=== PATIENT | male | born 1955 | race Caucasian/White ===

== ENCOUNTER 2018-10-13 14:50 | Emergency (ER) | payer BC ==
--- OUTSIDE RECORDS SUMMARY | 2018-10-13 14:55 | XMS REPORT ---
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 Active Onset: 01/02/2011 Essential hypertension Bartolo Comer M.D. Active Onset: 01/02/2011 Hyperlipidemia Bartolo Comer M.D. Active Onset: 05/13/2012 Tobacco user Bartolo Comer M.D. Active Onset: 06/05/2016 Mixed hyperlipidemia Thomas Kauffman M.D. Active Onset: 12/17/2016 Benign prostatic hypertrophy without Thomas Kauffman M.D. Active outflow obstruction Family History Date Family Member(s) Problem(s) Comments Father Multiple Myeloma Father Benign Prostatic Hypertrophy Mother Cerebrovascular Accident (CVA) fatal - age 65 First Brother Diabetes Mellitus, II First Brother Hypertension Social History Type Date Description Comments Cigarette Use Current Cigarette Smoker started age 31 - one pack per day - to current ETOH Use Currently consumes alcohol 2-3 drinks daily - hard liquor Smoking Patient is a former smoker Has been done since mid-June Exercise Type/Frequency Exercises sporadically Current Allergies, Adverse Reactions, Alerts Date Description Reaction Status Severity Comments 12/19/2010 NKDA active Medications Medication Date Status Form Strength Qnty SIG Indications Ordering Provider Metformin HCL Active Tablets 1000mg 90tabs 1 by mouth E11.9 Jazmine ER (Osm) 014 ER 24HR every day Amy Cedeño Atorvastatin Active Tablets 20mg 90tabs take 1 E78.2 Jazmine Calcium 013 tablet by Davidson mouth once M.DLurdes daily Aspir-81 Active Tablets 81mg 90tabs 1 po qd Bartolo ALurdes 012 DR Souleymane M.D. Lisinopril Active Tablets 40mg 90tabs take 1 I10 Thomas A. 012 tablet by Jamari, mouth once M.D. daily Naproxen Active Tablets 500mg 1 by mouth Unknown 000 twice a day with food Doxycycline Hx Tablets 100mg 2tabs 2 tabs by Thomas A. Hyclate 017 - DR mouth once Darveronica, M.DLurdes 017 Doxycycline Hx Tablets 100mg 2tabs take 2 Thomas A. Hyclate 017 - pills x 1 Darlow, dose M.D. 017 Azithromycin Hx Tablets 250mg 6tabs 2 tabs by J20.9 Jairo Winchester, 016 - mouth day M.D. #1 then 1 016 tab by mouth day#2-5 Accu-Chek Araceli Hx Can 1Month for E11.9 Mcfarland A. Test Strips 013 - testing 1 Souleymane time a day M.D. 018 Accu-Chek Araceli Hx Test 1Box Test Q Am Mcfarland A. Smartview Test 013 - Strips Comer, Strips M.D. 013 Accu-Chek Araceli Hx Kit 1units for Mcfarland A. Smartview 013 - testing 3 Souleymane times per M.D. 013 week Accu-Chek Araceli Hx 1Box test 1x Mcfarland A. Test Strips 013 - day Souleymane M.D. 013 Doxycycline Hx Tablets 100mg 2tabs 2 tabs po Bartolo Bowen Hyclate 012 - DR jordyn Comer, Amy 013 Chantix Starter Hx 1units starter 305.1 Bartolo A. Pack 012 - pack as Souleymane, directed MJose 012 then two refills on regular dose Lisinopril Hx Tablets 30mg 90tabs 1 po qd 401.9 Bartolo Bowen 012 - Souleymane Amy 012 Metformin HCL Hx Tablets 500mg 90tabs Take 1 Jairo Winchester, ER 012 - ER 24HR Tablet By Amy Mouth 014 Every Morning Levaquin Hx Tablets 500mg 20tabs 1 po qd 599.70 Bartolo Bowen 011 - Souleymane, Amy 012 Amlodipine Hx Tablets 10mg 90tabs 1 po qd 401.9 Bartolo Walekr. Besylate 011 - Souleymane Amy 011 Lisinopril Hx Tablets 20mg 30tabs 1 po qd 401.9 Bartolo ALurdes 011 - Souleymane Amy 011 Lisinopril Hx Tablets 20mg 90tabs take 1 401.9 Bartolo A. 011 - tablet Souleymane, daily MJose 012 Simvastatin Hx Tablets 20mg 30tabs take 1 272.4 Bartolo ALurdes 011 - tablet by Souleymane, mouth once M.Padmini 013 daily Caduet 0 Hx Tablets 10-20mg 30tabs 1 po qd Unknown 000 - 011 Lisinopril 0 Hx Tablets 10mg 30tabs 1 po qd Unknown 000 - 011 Metformin HCL Hx Tablets 500mg 180tab 1 po bid Bartolo Bowen 000 - s Souleymane Amy 012 Test Strips - 0 Hx 3Month test once Bartolo Henderson 000 - s in am Souleymane Amy 013 Immunizations CPT Code Status Date Vaccine Lot # [id number] Given 09/11/2017 Influenza Vac, Quadrivalent, Slit Virus, Im [id number] Given 06/16/2017 Zostivax [id number] Given 06/16/2017 Zostivax [id number] Given 12/17/2016 Influenza Vac, Quadrivalent, Slit Virus, Im [id number] Given 11/21/2015 Influenza Vac, Quadrivalent, Slit Virus, Im [id number] Given 08/09/2014 DO Not Use Split Influenza Virus Vaccine [id number] Given 09/14/2012 DO Not Use Split Influenza Virus Vaccine [id number] Given 12/19/2010 Tdap Tetanus, W Pertussis [id number] Vital Signs Date Vital Result Comment 10/07/2018 BP Systolic 120 mmHg BP Diastolic 78 mmHg Heart Rate 72 /min Body Temperature 98.8 F Respiratory Rate 16 /min Height 67.75 inches 5'7.75" Weight 200.00 lb BMI (Body Mass Index) 30.6 kg/m2 06/16/2018 BP Systolic 120 mmHg BP Diastolic 80 mmHg Heart Rate 68 /min Body Temperature 98.6 F Respiratory Rate 16 /min Height 67.75 inches 5'7.75" Weight 195.00 lb BMI (Body Mass Index) 29.9 kg/m2 12/17/2017 BP Systolic 122 mmHg BP Diastolic 78 mmHg Heart Rate 64 /min Body Temperature 99.1 F Respiratory Rate 16 /min Height 67.75 inches 5'7.75" Weight 195.12 lb BMI (Body Mass Index) 29.9 kg/m2 09/11/2017 BP Systolic 118 mmHg BP Diastolic 80 mmHg Heart Rate 82 /min Body Temperature 98.1 F Height 67.75 inches 5'7.75" Weight 189.00 lb BMI (Body Mass Index) 28.9 kg/m2 06/16/2017 BP Systolic 116 mmHg BP Diastolic 78 mmHg Heart Rate 68 /min Body Temperature 98.8 F Respiratory Rate 16 /min Height 67.75 inches 5'7.75" Weight 186.00 lb BMI (Body Mass Index) 28.5 kg/m2 12/17/2016 BP Systolic 114 mmHg BP Diastolic 78 mmHg Heart Rate 78 /min Body Temperature 98.4 F Respiratory Rate 16 /min Height 67.75 inches 5'7.75" Weight 197.00 lb BMI (Body Mass Index) 30.2 kg/m2 06/05/2016 BP Systolic 120 mmHg BP Diastolic 76 mmHg Heart Rate 80 /min Body Temperature 99.0 F Respiratory Rate 12 /min Height 67.75 inches 5'7.75" Weight 187.00 lb BMI (Body Mass Index) 28.6 kg/m2 11/21/2015 BP Systolic 134 mmHg BP Diastolic 84 mmHg Heart Rate 72 /min Respiratory Rate 16 /min Height 67.75 inches 5'7.75" Weight 187.00 lb BMI (Body Mass Index) 28.6 kg/m2 06/02/2015 BP Systolic 144 mmHg BP Diastolic 82 mmHg Heart Rate 68 /min Body Temperature 98.1 F Respiratory Rate 16 /min Height 67.75 inches 5'7.75" Weight 177.12 lb BMI (Body Mass Index) 27.1 kg/m2 12/09/2014 BP Systolic 144 mmHg BP Diastolic 84 mmHg Heart Rate 76 /min Body Temperature 98.6 F Respiratory Rate 16 /min Height 68 inches 5'8" measured Weight 185.00 lb BMI (Body Mass Index) 28.1 kg/m2 08/09/2014 BP Systolic 122 mmHg BP Diastolic 88 mmHg Heart Rate 64 /min Body Temperature 98.6 F Respiratory Rate 17 /min Height 68 inches 5'8" measured Weight 184.50 lb BMI (Body Mass Index) 28.1 kg/m2 04/05/2014 BP Systolic 132 mmHg BP Diastolic 90 mmHg Heart Rate 84 /min Body Temperature 99.3 F Height 68 inches 5'8" measured Weight 184.12 lb BMI (Body Mass Index) 28.0 kg/m2 12/06/2013 BP Systolic 118 mmHg BP Diastolic 80 mmHg Heart Rate 64 /min Body Temperature 98.7 F Respiratory Rate 16 /min Height 68 inches 5'8" measured Weight 180.00 lb BMI (Body Mass Index) 27.4 kg/m2 09/01/2013 BP Systolic 128 mmHg BP Diastolic 82 mmHg Heart Rate 68 /min Body Temperature 97.2 F Respiratory Rate 16 /min Height 69 inches 5'9" Weight 181.00 lb BMI (Body Mass Index) 26.7 kg/m2 02/17/2013 BP Systolic 130 mmHg BP Diastolic 84 mmHg Heart Rate 72 /min Body Temperature 99.3 F Height 69 inches 5'9" Weight 181.00 lb BMI (Body Mass Index) 26.7 kg/m2 09/14/2012 BP Systolic 130 mmHg BP Diastolic 90 mmHg Heart Rate 68 /min Body Temperature 98.4 F Respiratory Rate 16 /min Height 69 inches 5'9" Weight 180.00 lb BMI (Body Mass Index) 26.6 kg/m2 05/13/2012 BP Systolic 132 mmHg BP Diastolic 88 mmHg Heart Rate 78 /min Body Temperature 98.4 F Height 69 inches 5'9" Weight 177.00 lb BMI (Body Mass Index) 26.1 kg/m2 01/13/2012 BP Systolic 136 mmHg BP Diastolic 88 mmHg Heart Rate 72 /min Body Temperature 99.7 F Height 69 inches 5'9" Weight 177.00 lb BMI (Body Mass Index) 26.1 kg/m2 09/09/2011 BP Systolic 130 mmHg BP Diastolic 90 mmHg Heart Rate 84 /min Body Temperature 98.9 F Height 69 inches 5'9" Weight 169.00 lb BMI (Body Mass Index) 25.0 kg/m2 08/30/2011 BP Systolic 140 mmHg BP Diastolic 90 mmHg Heart Rate 76 /min Body Temperature 97.4 F Respiratory Rate 12 /min Height 69 inches 5'9" Weight 173.00 lb BMI (Body Mass Index) 25.5 kg/m2 08/27/2011 BP Systolic 142 mmHg BP Diastolic 94 mmHg Heart Rate 64 /min Body Temperature 99.0 F Respiratory Rate 12 /min Height 69 inches 5'9" Weight 172.00 lb BMI (Body Mass Index) 25.4 kg/m2 05/06/2011 BP Systolic 140 mmHg BP Diastolic 90 mmHg Heart Rate 76 /min Body Temperature 99.1 F Respiratory Rate 12 /min Height 69 inches 5'9" Weight 166.00 lb BMI (Body Mass Index) 24.5 kg/m2 01/02/2011 BP Systolic 120 mmHg BP Diastolic 80 mmHg Heart Rate 68 /min Body Temperature 98.8 F Respiratory Rate 12 /min Height 69 inches 5'9" Weight 166.00 lb BMI (Body Mass Index) 24.5 kg/m2 12/19/2010 BP Systolic 112 mmHg BP Diastolic 78 mmHg Heart Rate 78 /min Body Temperature 98.6 F Height 69 inches 5'9" Weight 167.00 lb BMI (Body Mass Index) 24.7 kg/m2 Results Test Date Test Result H/L Range Note Lipid Profile 06/16/2018 Cholesterol 140 mg/dL 120-200 Triglycerides 79 mg/dL 30-200 HDL Cholesterol 34 mg/dL 30-70 LDL (Calculated) 90 CALC 0-129 VLDL Cholesterol 16 mg/dL 0-50 HDL Risk Factor 4.1 CALC 0.0-4.4 Comprehensive Metabolic Prof 06/16/2018 Sodium 134 mEq/L 134-149 Potassium 4.7 mEq/L 3.6-5.5 Chloride 103 mEq/L 94-112 Carbon Dioxide 24 mEq/L 21-32 Glucose 135 mg/dL High 70-105 1 BUN 25 mg/dL 6-26 Creatinine 0.9 mg/dL 0.6-1.4 BUN/Creat Ratio 27.8 CALC 8.0-36.0 Calcium 9.3 mg/dL 8.6-10.2 Total Protein 6.7 g/dL 6.4-8.3 Albumin 4.4 g/dL 3.8-5.5 Globulin 2.3 g/dL 2.0-4.8 A/G Ratio 1.9 CALC 0.6-2.3 Alk. Phosphatase 72 U/L 22-95 Alt (SGPT) 26 U/L 7-35 Ast (Sgot) 24 U/L 5-34 Total Bilirubin 0.4 mg/dL 0.2-1.3 GFR Non- >60 ml/min/1.73m^ >=60 GFR >60 ml/min/1.73m^ >=60 CBC Electronic a 06/16/2018 WBC 10.8 x10^3/UL High 4.0-10.0 RBC 4.44 x10^6/UL 3.93-6.00 HGB 13.8 g/dL 12.0-17.0 HCT 41 % 35-50 MCV 91.7 fL 80.0-95.0 MCH 31.1 pg 25.6-32.2 MCHC 33.9 g/dL 32.2-36.0 RDW-CV 13.2 % 11.6-14.4 PLT 249 x10^3/UL 163-400 MPV 9.5 fL 9.4-12.4 David# 7.41 x10^3/UL High 1.56-6.13 Lymph# 2.17 x10^3/UL 1.18-3.74 Bibb# 0.86 x10^3/UL High 0.24-0.82 Eos # 0.3 x10^3/UL 0.0-0.5 Baso # 0.06 x10^3/UL 0.01-0.08 David% 68.3 % 34.0-70.0 Lymph % 20.0 % 20.0-52.0 Bibb% 7.9 % 5.0-12.0 Eos% 3.0 % 0.7-7.0 Baso% 0.6 % 0.1-1.2 Laboratory test finding 06/16/2018 Hemoglobin A1c (Fma) 5.6% % 4.1-5.7 Ua - Non Micro (Fma) 06/16/2018 Appearance clear Color yellow Glucose, Urine (Fma/CMC/CTX) neg Bilirubin neg Ketones neg SP Grav >=1.030 Blood neg PH 6.0 Protein neg Urobil 0.2 Nitrite neg Leukocytes (a/[facility]) neg Laboratory test finding 06/16/2018 Microalb, Random 9.7 mg/L 0.5-37 (a/CMC/CTX) Laboratory test finding 03/21/2018 PSA Screening 0.612 ng/mL 0-4.0 Laboratory test finding 12/17/2017 Hemoglobin A1c (Fma) 5.6 % 4.1-5.7 Complete Blood Count 12/17/2017 WBC 9.6 x10^3/UL 3.6-9.6 RBC 4.35 x10^6/UL 3.90-5.70 HGB 13.9 g/dL 12.1-17.2 HCT 40 % 36-50 MCV 93.0 fL 82.2-97.4 MCH 31.9 pg 27.6-33.3 MCHC 34.4 g/dL 33.0-35.5 RDW 14.1 % High 11.6-13.7 PLT 258 x10^3/UL 150-400 MPV 7.7 fL 7.4-10.4 Gran # 7.0 x10^3/UL 1.5-7.2 Lymph# 2.2 x10^3/UL 0.7-4.9 Bibb# 0.4 x10^3/UL 0.1-0.9 Gran % 72.0 % 42.2-75.2 Lymph % 23.6 % 20.5-51.1 Bibb% 4.4 % 1.7-9.3 Laboratory test finding 09/13/2017 PSA Screening 0.495 ng/mL 0-4.0 2 Lipid Profile 06/16/2017 Cholesterol 158 mg/dL 120-200 Triglycerides 73 mg/dL 30-200 HDL Cholesterol 40 mg/dL 30-70 LDL (Calculated) 103 CALC 0-129 VLDL Cholesterol 15 mg/dL 0-50 HDL Risk Factor 4.0 CALC 0.0-4.4 Comprehensive Metabolic Prof 06/16/2017 Sodium 136 mEq/L 134-149 Potassium 5.5 mEq/L 3.6-5.5 Chloride 99 mEq/L 94-112 Carbon Dioxide 23 mEq/L 21-32 Glucose 130 mg/dL High 70-105 3 BUN 25 mg/dL 6-26 Creatinine 0.9 mg/dL 0.6-1.4 BUN/Creat Ratio 27.8 CALC 8.0-36.0 Calcium 9.6 mg/dL 8.6-10.2 Total Protein 7.0 g/dL 6.4-8.3 Albumin 4.6 g/dL 3.8-5.5 Globulin 2.4 g/dL 2.0-4.8 A/G Ratio 1.9 CALC 0.6-2.3 Alk. Phosphatase 76 U/L 22-95 Alt (SGPT) 24 U/L 7-35 Ast (Sgot) 24 U/L 5-34 Total Bilirubin 0.5 mg/dL 0.2-1.3 GFR Non- >60 ml/min/1.73m^ >=60 GFR >60 ml/min/1.73m^ >=60 Laboratory test finding 06/16/2017 TSH 1.58 mIU/L 0.50-6.00 Complete Blood Count 06/16/2017 WBC 11.5 x10^3/UL High 3.6-9.6 4 RBC 4.47 x10^6/UL 3.90-5.70 HGB 14.7 g/dL 12.1-17.2 HCT 42 % 36-50 MCV 94.0 fL 82.2-97.4 MCH 32.8 pg 27.6-33.3 MCHC 35.1 g/dL 33.0-35.5 RDW 14.2 % High 11.6-13.7 PLT 340 x10^3/UL 150-400 MPV 7.5 fL 7.4-10.4 Gran # 8.5 x10^3/UL High 1.5-7.2 Lymph# 2.4 x10^3/UL 0.7-4.9 Bibb# 0.6 x10^3/UL 0.1-0.9 Gran % 72.8 % 42.2-75.2 Lymph % 21.8 % 20.5-51.1 Bibb% 5.4 % 1.7-9.3 Laboratory test finding 06/16/2017 Hemoglobin A1c (Fma) 5.6 % 4.1-5.7 Microalb, Random (Fma/CMC/CTX) 5.6 mg/L 0.5-37 Laboratory test finding 02/08/2017 PSA Screening 0.589 ng/mL 0-4.0 5 Laboratory test finding 12/17/2016 Hepatitis C Antibody Nonreactive Nonreactive 6 Lipid Profile 12/17/2016 Cholesterol 171 mg/dL 120-200 Triglycerides 90 mg/dL 30-200 HDL Cholesterol 41 mg/dL 30-70 LDL (Calculated) 112 CALC 0-129 VLDL Cholesterol 18 mg/dL 0-50 HDL Risk Factor 4.2 CALC 0.0-4.4 Comprehensive Metabolic Prof 12/17/2016 Sodium 138 mEq/L 134-149 Potassium 5.5 mEq/L 3.6-5.5 Chloride 108 mEq/L 94-112 Carbon Dioxide 22 mEq/L 21-32 Glucose 132 mg/dL High 70-105 7 BUN 19 mg/dL 6-26 Creatinine 0.9 mg/dL 0.6-1.4 BUN/Creat Ratio 21.1 CALC 8.0-36.0 Calcium 10.1 mg/dL 8.6-10.2 Total Protein 7.6 g/dL 6.4-8.3 Albumin 4.7 g/dL 3.8-5.5 Globulin 2.9 g/dL 2.0-4.8 A/G Ratio 1.6 CALC 0.6-2.3 Alk. Phosphatase 89 U/L 22-95 Alt (SGPT) 22 U/L 7-35 Ast (Sgot) 18 U/L 5-34 Total Bilirubin 0.3 mg/dL 0.2-1.3 GFR Non- >60 ml/min/1.73m^ >=60 GFR >60 ml/min/1.73m^ >=60 Laboratory test finding 12/17/2016 TSH 2.15 mIU/L 0.50-6.00 PSA 0.6 ng/mL 0.0-4.0 Laboratory test finding 12/17/2016 Hemoglobin A1c (Fma) 5.8 % % High 4.1- 5.7 Complete Blood Count 12/17/2016 WBC 9.3 x10^3/UL 3.6-9.6 RBC 4.73 x10^6/UL 3.90-5.70 HGB 14.6 g/dL 12.1-17.2 HCT 43 % 36-50 MCV 91.0 fL 82.2-97.4 MCH 30.9 pg 27.6-33.3 MCHC 33.8 g/dL 33.0-35.5 RDW 14.8 % High 11.6-13.7 PLT 261 x10^3/UL 150-400 MPV 7.1 fL Low 7.4-10.4 Gran # 6.2 x10^3/UL 1.5-7.2 Lymph# 2.6 x10^3/UL 0.7-4.9 Bibb# 0.5 x10^3/UL 0.1-0.9 Gran % 65.4 % 42.2-75.2 Lymph % 28.7 % 20.5-51.1 Bibb% 5.9 % 1.7-9.3 Complete Blood Count 07/10/2016 WBC 9.8 x10^3/UL High 3.6-9.6 8 RBC 4.39 x10^6/UL 3.90-5.70 HGB 14.1 g/dL 12.1-17.2 HCT 41 % 36-50 MCV 94.0 fL 82.2-97.4 MCH 32.2 pg 27.6-33.3 MCHC 34.4 g/dL 33.0-35.5 RDW 13.5 % 11.6-13.7 PLT 281 x10^3/UL 150-400 MPV 7.7 fL 7.4-10.4 Gran # 7.0 x10^3/UL 1.5-7.2 Lymph# 2.4 x10^3/UL 0.7-4.9 Bibb# 0.4 x10^3/UL 0.1-0.9 Gran % 70.3 % 42.2-75.2 Lymph % 24.9 % 20.5-51.1 Bibb% 4.8 % 1.7-9.3 Complete Blood Count 06/05/2016 WBC 10.8 x10^3/UL High 3.6-9.6 9 RBC 4.54 x10^6/UL 3.90-5.70 HGB 14.6 g/dL 12.1-17.2 HCT 43 % 36-50 MCV 94.0 fL 82.2-97.4 MCH 32.0 pg 27.6-33.3 MCHC 33.9 g/dL 33.0-35.5 RDW 13.7 % 11.6-13.7 PLT 286 x10^3/UL 150-400 MPV 6.9 fL Low 7.4-10.4 Gran # 7.6 x10^3/UL High 1.5-7.2 Lymph# 2.9 x10^3/UL 0.7-4.9 Bibb# 0.6 x10^3/UL 0.1-0.9 Gran % 67.8 % 42.2-75.2 Lymph % 26.6 % 20.5-51.1 Bibb% 5.6 % 1.7-9.3 Laboratory test finding 06/05/2016 Hemoglobin A1c (Fma) 5.6 % 4.1-5.7 Microalb, Random (Fma/CMC/CTX) 5.3 mg/L 0.5-37 Lipid Profile 06/05/2016 Cholesterol 168 mg/dL 120-200 Triglycerides 170 mg/dL 30-200 HDL Cholesterol 40 mg/dL 30-70 LDL (Calculated) 94 CALC 0-129 VLDL Cholesterol 34 mg/dL 0-50 HDL Risk Factor 4.2 CALC 0.0-4.4 Comprehensive Metabolic Prof 06/05/2016 Sodium 146 mEq/L 134-149 Potassium 4.9 mEq/L 3.6-5.5 Chloride 111 mEq/L 94-112 Carbon Dioxide 24 mEq/L 21-32 Glucose 103 mg/dL 70-105 BUN 25 mg/dL 6-26 Creatinine 1.2 mg/dL 0.6-1.4 BUN/Creat Ratio 20.8 CALC 8.0-36.0 Calcium 10.2 mg/dL 8.6-10.2 Total Protein 7.3 g/dL 6.4-8.3 Albumin 4.6 g/dL 3.8-5.5 Globulin 2.7 g/dL 2.0-4.8 A/G Ratio 1.7 CALC 0.6-2.3 Alk. Phosphatase 68 U/L 22-95 Alt (SGPT) 26 U/L 7-35 Ast (Sgot) 25 U/L 5-34 Total Bilirubin 0.5 mg/dL 0.2-1.3 GFR Non- >60 ml/min/1.73m^ >=60 GFR >60 ml/min/1.73m^ >=60 Laboratory test finding 06/05/2016 TSH 1.85 mIU/L 0.50-6.00 Laboratory test finding 12/18/2015 Surgical Pathology SEE RESULT BELOW 10 Comprehensive Metabolic 11/28/2015 Sodium 134 mEq/L 134-149 Prof Potassium 4.9 mEq/L 3.6-5.5 Chloride 102 mEq/L 94-112 Carbon Dioxide 26 mEq/L 21-32 Glucose 127 mg/dL High 70-105 11 BUN 15 mg/dL 6-26 Creatinine 0.8 mg/dL 0.6-1.4 BUN/Creat Ratio 18.8 CALC 8.0-36.0 Calcium 9.6 mg/dL 8.6-10.2 Total Protein 7.3 g/dL 6.4-8.3 Albumin 4.5 g/dL 3.8-5.5 Globulin 2.8 g/dL 2.0-4.8 A/G Ratio 1.6 CALC 0.6-2.3 Alk. Phosphatase 66 U/L 22-95 Alt (SGPT) 19 U/L 7-35 Ast (Sgot) 17 U/L 5-34 Total Bilirubin 0.2 mg/dL 0.2-1.3 GFR Non- >60 ml/min/1.73m^ >=60 GFR >60 ml/min/1.73m^ >=60 Lipid Profile 11/28/2015 Cholesterol 172 mg/dL 120-200 Triglycerides 92 mg/dL 30-200 HDL Cholesterol 43 mg/dL 30-70 LDL (Calculated) 111 CALC 0-129 VLDL Cholesterol 18 mg/dL 0-50 HDL Risk Factor 4.0 CALC 0.0-4.4 Laboratory test finding 11/28/2015 Hemoglobin A1c 5.4 % 4.1-5.7 (Fma/CMC,CX) Comprehensive Metabolic 06/02/2015 Sodium 135 mEq/L 134-149 Prof Potassium 3.9 mEq/L 3.6-5.5 Chloride 103 mEq/L 94-112 Carbon Dioxide 21 mEq/L 21-32 Glucose 98 mg/dL 70-105 BUN 18 mg/dL 6-26 Creatinine 0.8 mg/dL 0.6-1.4 BUN/Creat Ratio 22.5 CALC 8.0-36.0 Calcium 9.1 mg/dL 8.6-10.2 Total Protein 6.9 g/dL 6.4-8.3 Albumin 4.3 g/dL 3.8-5.5 Globulin 2.6 g/dL 2.0-4.8 A/G Ratio 1.7 CALC 0.6-2.3 Alk. Phosphatase 64 U/L 22-95 Alt (SGPT) 19 U/L 7-35 Ast (Sgot) 25 U/L 5-34 Total Bilirubin 0.6 mg/dL 0.2-1.3 Lipid Profile 06/02/2015 Cholesterol 171 mg/dL 120-200 Triglycerides 78 mg/dL 30-200 HDL Cholesterol 42 mg/dL 30-70 LDL (Calculated) 113 CALC 0-129 VLDL Cholesterol 16 mg/dL 0-50 HDL Risk Factor 4.1 CALC 0.0-4.4 Laboratory test 06/02/2015 Hemoglobin A1c 5.2 % % 4.1-5.7 finding (Fma/CMC,CX) Laboratory test 01/07/2015 PSA Diagnostic 0.637 ng/mL 0-4.0 finding Laboratory test 01/07/2015 Hemoglobin A1c 5.9 % Less than 6.0 12, 13 finding Comp Metabolic-ALL 01/07/2015 Sodium 136 mmol/L 133-145 12 Lab Compani Potassium 4.9 mmol/L 3.5-5.0 12 Chloride 104 mmol/L 101-111 12 Co2 Carbon Dioxide 27 mmol/L 22-32 12 Anion Gap 5 mmol/L 2-11 12 Glucose 96 mg/dL 70-100 12 Blood Urea Nitrogen 29 mg/dL High 6-24 12 Creatinine 1.02 mg/dL 0.67-1.17 12 BUN/Creatinine Ratio 28.4 High 8-20 12 Calcium 10.0 mg/dL 8.6-10.3 12 Total Protein 6.9 g/dL 6.4-8.9 12 Albumin 4.6 g/dL 3.2-5.2 12 Globulin 2.3 g/dL 2-4 12 Albumin/Globulin Ratio 2.0 1-3 12 Total Bilirubin 0.60 mg/dL 0.2-1.0 12 Alkaline Phosphatase 57 U/L 34-104 12 Alt 18 U/L 7-52 12 Ast 23 U/L 13-39 12 Egfr Non- 75.0 >60 12 Egfr 96.5 >60 12, 14 Lipid Panel-[facility] 01/07/2015 Triglycerides 42 mg/dL 12, 15 Cholesterol 163 mg/dL 12, 16 HDL Cholesterol 54.7 mg/dL 12, 17 LDL Cholesterol 100 mg/dL 12, 18 Comprehensive Metabolic Prof 08/09/2014 Sodium 138 mEq/L 134-149 Potassium 5.1 mEq/L 3.6-5.5 Chloride 103 mEq/L 94-112 Carbon Dioxide 28 mEq/L 21-32 Glucose 117 mg/dL High 70-105 BUN 16 mg/dL 6-26 Creatinine 0.8 mg/dL 0.6-1.4 BUN/Creat Ratio 20.0 CALC 8.0-36.0 Calcium 9.8 mg/dL 8.6-10.2 Total Protein 7.3 g/dL 6.3-8.1 Albumin 4.4 g/dL 3.8-5.5 Globulin 2.9 g/dL 2.0-4.8 A/G Ratio 1.5 CALC 0.6-2.3 Alk. Phosphatase 71 U/L 22-95 Alt (SGPT) 20 U/L 7-35 Ast (Sgot) 23 U/L 5-34 Total Bilirubin 0.5 mg/dL 0.2-1.3 Lipid Profile 08/09/2014 Cholesterol 168 mg/dL 120-200 Triglycerides 78 mg/dL 30-200 HDL Cholesterol 53 mg/dL 30-70 LDL (Calculated) 99 CALC 0-129 VLDL Cholesterol 16 mg/dL 0-50 HDL Risk Factor 3.2 CALC 0.0-4.4 Laboratory test finding 08/09/2014 Hemoglobin A1c 5.3 % 4.1-5.7 (Fma/CMC,CX) Comprehensive Metabolic 04/05/2014 Sodium 136 mEq/L 134-149 Prof Potassium 4.6 mEq/L 3.6-5.5 Chloride 103 mEq/L 94-112 Carbon Dioxide 25 mEq/L 21-32 Glucose 104 mg/dL 70-105 BUN 13 mg/dL 6-26 Creatinine 0.9 mg/dL 0.6-1.4 BUN/Creat Ratio 14.4 CALC 8.0-36.0 Calcium 9.6 mg/dL 8.6-10.2 Total Protein 6.8 g/dL 6.3-8.1 Albumin 4.7 g/dL 3.8-5.5 Globulin 2.1 g/dL 2.0-4.8 A/G Ratio 2.2 CALC 0.6-2.3 Alk. Phosphatase 79 U/L 22-95 Alt (SGPT) 25 U/L 10-40 Ast (Sgot) 19 U/L 5-34 Total Bilirubin 0.4 mg/dL 0.2-1.3 Laboratory test 04/05/2014 Hemoglobin A1c 5.4 % 4.1-5.7 finding (a/[facility],CX) CCP Antibodies 04/05/2014 CCP Antibodies 47 units High 0-19 19, 20 Iga,Igg IgG/IgA Lyme Igg/M W/RFX 04/05/2014 Lyme IgG/IgM Ab <0.91 index 0.00-0.90 19, 21 West Lyme Disease Ab, Quant, IgM <0.91 index 0.00-0.90 19, 22 Laboratory test finding 04/05/2014 Rheumatoid Arth Factor 8.5 IU/mL 0.0- 13.9 19 C-Reactive Protein 0.4 mg/L 0.0-5.0 19 Antinuclear Abs, Ifa Negative 19, 23 Ua - Non Micro ([facility]) 12/06/2013 Appearance clear Color yellow Glucose - Bilirubin - Ketones - SP Grav 1.025 Blood - PH 5.5 Protein - Urobil 0.2 Nitrite - Leukocytes ([facility]) - Laboratory test finding 09/15/2013 PSA 0.50 ng/mL 0.00-4.00 Laboratory test finding 09/15/2013 Hemoglobin A1c 5.1 % 4.1-5.7 (a/[facility],CX) Lipid Profile 09/15/2013 Cholesterol 156 mg/dL 120-200 HDL 48 mg/dL 30-70 Triglycerides 75 mg/dL 30-200 HDL Risk Factor 3.3 CALC 0.0-4.4 LDL (Calculated) 94 CALC 0-129 VLDL (Calculated) 15 mg/dL 0-50 Comprehensive Metabolic Prof 09/15/2013 Albumin 4.6 g/dL 3.8-5.5 Alk. Phos. 70 U/L 22-95 Alt (SGPT) 17 U/L 10-40 Ast (Sgot) 22 U/L 5-34 BUN 19 mg/dL 6-26 Calcium 9.9 mg/dL 8.6-10.2 Chloride 100 mEq/L 94-112 Creatinine 1.1 mg/dL 0.6-1.4 Carbon Dioxide 27 mEq/L 21-32 Glucose 126 mg/dL High 70-105 Sodium 136 mEq/L 134-149 Total Bilirubin 0.3 mg/dL 0.2-1.3 Total Protein 6.8 g/dL 6.3-8.1 Potassium 5.5 mEq/L 3.6-5.5 Globulin 2.2 g/dL 2.0-4.8 A/G Ratio 2.1 Calc 0.6-2.3 BUN/Creat Ratio 16.8 Calc 8.0-36.0 Laboratory test finding 02/17/2013 Hemoglobin A1c ([facility],CX) 5.3 % 4.1- 5.7 Lipid Profile 09/14/2012 Cholesterol 193 mg/dL 120-200 HDL 51 mg/dL 30-70 Triglycerides 44 mg/dL 30-200 HDL Risk Factor 3.7 CALC 0.0-4.4 LDL (Calculated) 133 CALC High 0-129 VLDL (Calculated) 9 mg/dL 0-50 Comprehensive Metabolic Prof 09/14/2012 Albumin 4.9 g/dL 3.8-5.5 Alk. Phos. 74 U/L 22-95 Alt (SGPT) 17 U/L 10-40 Ast (Sgot) 19 U/L 5-34 BUN 20 mg/dL 6-26 Calcium 9.9 mg/dL 8.6-10.2 Chloride 101 mEq/L 94-112 Creatinine 1.0 mg/dL 0.6-1.4 Carbon Dioxide 22 mEq/L 21-32 Glucose 117 mg/dL High 70-105 Sodium 136 mEq/L 134-149 Total Bilirubin 0.6 mg/dL 0.2-1.3 Total Protein 7.2 g/dL 6.3-8.1 Potassium 4.5 mEq/L 3.6-5.5 Globulin 2.3 g/dL 2.0-4.8 A/G Ratio 2.1 Calc 0.6-2.2 BUN/Creat Ratio 21.0 Calc 8.0-36.0 Laboratory test finding 09/14/2012 PSA 0.70 ng/mL 0.00-4.00 Laboratory test finding 09/14/2012 Hemoglobin A1c 5.3 % 4.1-5.7 (a/[facility],CX) Ua - Non Micro (a) 09/14/2012 Appearance CLEAR Color YELLOW Glucose, Urine (a/[facility]/CTX) NEG Bilirubin NEG Ketones NEG SP Grav 1.025 Blood NEG PH 6.0 Protein NEG Urobil 1.0 Nitrite NEG Leukocytes ([facility]) NEG Laboratory test finding 05/13/2012 Hemoglobin A1c ([facility]) 5.3 % 4.1- 5.7 Laboratory test finding 02/17/2012 Hemoglobin A1c (a/[facility],CX) 5.4 % 4.1- 5.7 Lipid Profile 02/17/2012 Cholesterol 173 mg/dL 120-200 HDL 57 mg/dL 30-70 Triglycerides 62 mg/dL 30-200 HDL Risk Factor 3.0 CALC 0.0-4.0 LDL (Calculated) 103 CALC 0-129 VLDL (Calculated) 12 mg/dL 0-50 Comprehensive Metabolic Prof 02/17/2012 Albumin 4.7 g/dL 3.8-5.5 Alk. Phos. 78 U/L 22-95 Alt (SGPT) 15 U/L 10-40 Ast (Sgot) 18 U/L 5-34 BUN 12 mg/dL 6-26 Calcium 9.7 mg/dL 8.6-10.2 Chloride 104 mEq/L 94-112 Creatinine 0.9 mg/dL 0.6-1.4 Carbon Dioxide 24 mEq/L 21-32 Glucose 135 mg/dL High 70-105 Sodium 137 mEq/L 134-149 Total Bilirubin 0.5 mg/dL 0.2-1.3 Total Protein 6.9 g/dL 6.3-8.1 Potassium 5.2 mEq/L 3.6-5.5 Globulin 2.2 g/dL 2.0-4.8 A/G Ratio 2.1 Calc 0.6-2.2 BUN/Creat Ratio 13.9 Calc 8.0-36.0 Laboratory test finding 09/09/2011 Hemoglobin A1c (a/CMC,CX) 5.5 % 4.1- 5.7 CBC Electronic (a) 09/09/2011 WBC 11.2 High 3.6-9.6 24 RBC 4.61 3.90-5.70 Hemoglobin (Fma/CMC/CTX) 15.9 g/dL 12.1 - 17.2 Hematocrit (Fma/CMC/CTX) 45.3 % 36.1 - 50.3 Platelets 335 10^3/ul 150-400 Lymph% 15.7 Low 20.5-51.1 Mixed% 3.7 Neutrophils % 80.6 Mean Corpuscular Vol 98 High 82.2-97.4 Mean Corpuscular Hemoglobin 34.6 High 27.6-33.3 Mean Corpuscular Hemo Concen 35.2 32.0-36.0 RDW 12.5 11.6-13.7 Mean Platelet Volume 7.4 6.5-11.0 Ua - Non Micro ([facility]) 09/09/2011 Appearance clear Color yellow Glucose neg Bilirubin neg Ketones trace SP Grav >1.030 Blood neg PH 6.0 Protein neg Urobil 0.2 Nitrite neg Leukocytes (Fma/CMC/Centrex) neg Comprehensive Metabolic Prof 09/09/2011 Albumin 5.1 g/dL 3.8-5.5 Alk. Phos. 85 U/L 22-95 Alt (SGPT) 13 U/L 10-40 Ast (Sgot) 16 U/L 5-34 BUN 22 mg/dL 6-26 Calcium 10.5 mg/dL High 8.6-10.2 25 Chloride 106 mEq/L 94-112 Creatinine 1.0 mg/dL 0.6-1.4 Carbon Dioxide 28 mEq/L 21-32 Glucose 104 mg/dL 70-105 Sodium 135 mEq/L 134-149 Total Bilirubin 0.5 mg/dL 0.2-1.3 Total Protein 7.4 g/dL 6.3-8.1 Potassium 5.3 mEq/L 3.6-5.5 Globulin 2.3 g/dL 2.0-4.8 A/G Ratio 2.2 Calc 0.6-2.2 BUN/Creat Ratio 21.9 Calc 8.0-36.0 Laboratory test finding 08/27/2011 Urine Culture Escherichia coli 26 Ua - Micro ([facility]) 08/27/2011 Appearance RED Color CLOUDY Glucose, Urine (Fma/CMC/CTX) NEG Bilirubin NEG Ketones NEG SP Grav 1.025 Blood LARGE PH 5.5 Protein 30 SSA +1 Urobil 2.0 Nitrite POS Leukocytes (Fma/CMC/Centrex) LARGE Hyaline - /Lpf Granular - /Lpf WBC (a,Centrex) >100 RBC >50 Mucus (Fma/CBC/Centrex) SM AMOUNT /Lpf Epith RARE /Lpf Bacteria +3 /Hpf Amorphous (Fma/CMC/Centrex) - /Lpf Crystals, Fluid (Fma/CMC/CTX) - Z#Comments - CBC Electronic ([facility]) 08/27/2011 WBC 17.2 High 3.6-9.6 RBC 4.39 3.90-5.70 Hemoglobin (Fma/CMC/CTX) 14.9 g/dL 12.1 - 17.2 Hematocrit (a/CMC/CTX) 43.2 % 36.1 - 50.3 Platelets 282 10^3/ul 150-400 Lymph% 8.4 Low 20.5-51.1 Mixed% 2.5 Neutrophils % 89.1 Mean Corpuscular Vol 98 High 82.2-97.4 Mean Corpuscular Hemoglobin 33.9 High 27.6-33.3 Mean Corpuscular Hemo Concen 34.5 32.0-36.0 RDW 12.4 11.6-13.7 Mean Platelet Volume 7.6 6.5-11.0 Basic Metabolic Profile 08/27/2011 BUN 17 mg/dL 6-26 Calcium 9.7 mg/dL 8.6-10.2 Chloride 108 mEq/L 94-112 Creatinine 0.8 mg/dL 0.6-1.4 Carbon Dioxide 24 mEq/L 21-32 Glucose 116 mg/dL High 70-105 Sodium 134 mEq/L 134-149 Potassium 4.8 mEq/L 3.6-5.5 BUN/Creat Ratio 20.1 Calc 8.0-36.0 Laboratory test finding 08/27/2011 PSA 2.40 ng/mL 0.00-4.00 Laboratory test finding 05/06/2011 Hemoglobin A1c 5.3 % 4.1-5.7 (a/[facility],CX) Ua - Non Micro (a) 12/19/2010 Appearance CLEAR Color YELLOW Glucose, Urine (a/CMC/CTX) NEG Bilirubin NEG Ketones NEG SP Grav 1.020 Blood NEG PH 7.0 Protein NEG Urobil 4.0 Nitrite NEG Leukocytes ([facility]/Centrex) NEG Laboratory test finding 12/19/2010 Hemoglobin A1c ([facility],CX) 5.3 % 4.1- 5.7 CBC ([facility]) 12/19/2010 WBC 7.6 3.6-9.6 RBC 4.50 3.90-5.70 Hemoglobin (a/CMC/CTX) 15.7 g/dL 12.1 - 17.2 Hematocrit ([facility]/CTX) 44.3 % 36.1 - 50.3 Platelets 253 10^3/ul 150-400 Lymph% 22.5 20.5-51.1 Mixed% 3.8 Neutrophils % 73.7 Mean Corpuscular Vol 98 High 82.2-97.4 Mean Corpuscular Hemoglobin 34.9 High 27.6-33.3 Mean Corpuscular Hemo Concen 35.4 32.0-36.0 RDW 11.8 11.6-13.7 Mean Platelet Volume 7.6 6.5-11.0 Laboratory test finding 12/19/2010 B12 514 pg/mL 230-1050 TSH 1.95 mIU/L 0.50-6.00 Comprehensive Metabolic Prof 12/19/2010 Albumin 4.8 g/dL 3.8-5.5 Alk. Phos. 70 U/L 22-95 Alt (SGPT) 17 U/L 10-40 Ast (Sgot) 25 U/L 5-34 BUN 13 mg/dL 6-26 Calcium 9.4 mg/dL 8.6-10.2 Chloride 103 mEq/L 94-112 Creatinine 0.8 mg/dL 0.6-1.4 Carbon Dioxide 27 mEq/L 21-32 Glucose 106 mg/dL High 70-105 Sodium 134 mEq/L 134-149 Total Bilirubin 1.3 mg/dL 0.2-1.3 Total Protein 7.1 g/dL 6.3-8.1 Potassium 5.2 mEq/L 3.6-5.5 Globulin 2.3 g/dL 2.0-4.8 A/G Ratio 2.1 Calc 0.6-2.2 BUN/Creat Ratio 16.4 Calc 8.0-36.0 Lipid Profile 12/19/2010 Cholesterol 134 mg/dL 120-200 HDL 60 mg/dL 30-70 Triglycerides 56 mg/dL 30-200 HDL Risk Factor 2.2 CALC Low 4.2-7.0 LDL (Calculated) 63 CALC 0-129 VLDL (Calculated) 11 mg/dL 0-50 Laboratory test finding 12/19/2010 PSA 0.90 ng/mL 0.00-4.00 Microalb/Creatinine, Random 12/19/2010 Microalb, Random 9.7 mg/L 0.5-37 Ur (Fma/CMC/CTX) Urine Creatinine (F/C/CTX) 18.2 nmol/L Microalb.,Creatinine (F/C/CTX) 0.5 Surgical Pathology 12/12/2010 Surgical Pathology <SEE NOTE > 27 1 consistent w/ previous results 2 Serum levels of PSA measured using the Keisha Tap[employer] DXI Hybritech immunoassay should not be interpreted as absolute evidence of the presence or absence of disease. The PSA value should be used in conjunction with other pertinent clinical diagnostic procedures. A PSA value in the range of 0.1 to 0.6 ng/ml is indeterminate if being used as an indicator of recurrent or residual disease. The values obtained with different assay methods or kits cannot be used interchangeably. 3 RESULTS VERIFIED BY REPEAT ANALYSIS 4 RESULTS VERIFIED BY REPEAT ANALYSIS 5 Serum levels of PSA measured using the Keisha [employer] DXI Hybritech immunoassay should not be interpreted as absolute evidence of the presence or absence of disease. The PSA value should be used in conjunction with other pertinent clinical diagnostic procedures. A PSA value in the range of 0.1 to 0.6 ng/ml is indeterminate if being used as an indicator of recurrent or residual disease. The values obtained with different assay methods or kits cannot be used interchangeably. 6 1SST [id number] RESULTS VERIFIED BY REPEAT ANALYSIS 8 consistent w/ previous results 9 RESULTS VERIFIED BY REPEAT ANALYSIS 10 SEE RESULT BELOW Name: SAMMY BOYER : [address]: Ismael Ocasio MD Acct: [id number] Unit: [id number] AGE: 60 Location: ENDOC Re12/18/15 SEX: M Status: REG REF SPEC: [id number] JAMARCUS: 12/18/15- SUBM DR: Ismael Ocasio MD REQ: [id number] RECD: 12/18/153 STATUS: CELIA KLEIN DR: Jairo Winchester MD _ ORDERED: LEVEL IV/5 FINAL DIAGNOSIS 1. Colon, proximal transverse, biopsy: -- Tubular adenoma. -- No high grade dysplasia or malignancy. 2. Colon, mid transverse, biopsy: -- Benign colonic mucosa with surface hyperplastic change. 3. Colon, hepatic flexure, biopsy: -- Tubular adenoma. -- No high grade dysplasia or malignancy. 4. Colon, sigmoid, biopsy: -- Tubular adenoma. -- No high grade dysplasia or malignancy. 5. Colon, sigmoid, biopsy: -- Hyperplastic polyp. CLINICAL HISTORY Usual bowel habit - every day; GI - negative; diet - adult onset of diabetes mellitus POST-OPERATIVE DIAGNOSIS Colonoscopy to cecum with ease - gnarled sigmoid. Left diverticulosis, polyps - 2 regions; follow-up to be determined (4 years) CONTINUED ON NEXT PAGE * ML=Testing performed at Main Lab DEPARTMENT OF PATHOLOGY, [address] [place] [address] Mir Parker M.D. Director [facility] # [id number] RUN DATE: 12/20/15 [facility] LAB LIVE PAGE 2 Patient: SAMMY BOYER [id number] (Continued) GROSS DESCRIPTION (Continued) GROSS DESCRIPTION 1. The specimen is received in formalin labeled, Proximal Transverse Polyp , and consists of a 0.7 x 0.6 x 0.1 cm aggregate of heller-white irregular soft tissue fragments, which is entirely submitted in one cassette. 2. The specimen is received in formalin labeled, Biopsy Mid Transverse Polyp, and consists of two heller-white irregular to polypoid soft tissue fragments averaging 0.4 x 0.3 x 0.2 cm, which are entirely submitted in one cassette. 3. The specimen is received in formalin labeled, Hepatic Flexure Polyp, and consists of a 1.1 x 0.7 x 0.2 cm aggregate of heller-white irregular soft tissue fragments, which is entirely submitted in one cassette. 4. The specimen is received in formalin labeled, Sigmoid Polyp, and consists of a 1.0 x 0.6 x 0.3 cm aggregate of heller-white irregular to polypoid soft tissue fragments, which is entirely submitted in one cassette. 5. The specimen is received in formalin labeled, Sigmoid Polyp Unspecified , and consists of a 0.6 x 0.3 x 0.2 cm heller-white irregular to polypoid soft tissue fragment , which is bisected and entirely submitted in one cassette. Signed (signature on file) Makenzie Moran MD 01/30 1105 END OF REPORT * ML=Testing performed at Main Lab DEPARTMENT OF PATHOLOGY, [address] [place] [address] Mir Parker M.D. Director [facility] # [id number] 11 consistent w/ previous results 12 PT IS FASTING 13 Therapeutic target for the treatment of diabetes Mellitus patients is <7% HBA1C, and in selective patients <6.0%.Please refer to [place] [employer] Diabetic care guidelines for further information. 14 Because ethnic data is not always readily available, this report includes an eGFR for both -Americans and non- Americans. The National Kidney Disease Education Program (NKDEP) does not endorse the use of the MDRD equation for patients that are not between the ages of 18 and 70, are , have extremes of body size, muscle mass, or nutritional status, or are non- or non-. According to the National Kidney Foundation, irrespective of diagnosis, the stage of the disease is based on the level of kidney function: Stage Description GFR(mL/min/1.73 m(2)) 1 Kidney damage with normal or decreased GFR 90 2 Kidney damage with mild decrease in GFR 60-89 3 Moderate decrease in GFR 30-59 4 Severe decrease in GFR 15-29 5 Kidney failure <15 (or dialysis) 15 Desirable <150 Borderline high 150-199 High 200-499 Very High >500 16 Desirable <200 Borderline high 200-239 High >239 17 Low <40 Desirable: 40-60 High: >60 18 Desirable <100 Near Optimal 100-129 Borderline high 130-159 High 160-189 Very High >189 19 3 sst 20 Negative <20 Weak positive 20 - 39 Moderate positive 40 - 59 Strong positive >59 21 Negative <0.91 Equivocal 0.91 - 1.09 Positive >1.09 Note: The CDC currently advises that Western blot testing be performed following all equivocal or positive EIA results. Final diagnosis should include appropriate clinical findings and a positive EIA which is also positive by Western blot. 22 Negative <0.91 Equivocal 0.91 - 1.09 Positive >1.09 Note: IgM levels may peak at 3-6 weeks post infection, then gradually decline. FDA currently advises that Western Blot testing be performed following all equivocal or positive EIA results. Final diagnosis should include appropriate clinical findings and a positive EIA which is also positive by Western Blot. 23 Negative <1:80 Borderline 1:80 Positive >1:80 24 results stefanie'd 25 result stefanie'd 26 Escherichia coli >100,000 col/ml URINE CULTURE organism 1 Escherichia coli >100,000 col/ml Meropenem <=0.25 Susceptible Ertapenem <=0.5 Susceptible Amikacin <=2 Susceptible Amoxicillin/CA <=2 Susceptible Ampicillin <=2 Susceptible Aztreonam <=1 Susceptible Cefazolin <=4 Susceptible Ciprofloxacin <=0.25 Susceptible Gentamicin <=1 Susceptible Imipenem <=1 Susceptible Levofloxacin <=0.12 Susceptible Nitrofurantoin <=16 Susceptible Tetracycline <=1 Susceptible Trimethoprim/Sulfa <=20 Susceptible 27 ---- RUN DATE: 12/13/10 [facility] NMI LIVE PAGE 1 RUN TIME: 1443 Specimen Inquiry RUN USER: INTERFACE -- Name: BOYERSAMMY Status: REG REF Re12/12/10 Age/Sex: 55/M Unit#: [id number] Location: [facility] : 57 -- Specimen: [id number] SOUT Spec Date: 12/12/10 [facility] Dr: Ismael carnes MD Spec Type: SURGICAL P Received: 12/12/10-1411 Copies to: Bartolo rubio MD SPECIMEN 1) RECTAL POLYP AT 3 CM. 2) RECTAL POLYP AT 4 CM. 3) BIOPSY ILEOCECAL VALVE POLYP 4) BIOPSY SIGMOID BIOPSY AT 30 CM. 5) RECTOSIGMOID POLYP AT 15 CM. HISTORY POST-OP DIAGNOSIS: Colonoscopy to cecum. Mild diverticulosis. 5 polyps. CLINICAL INFORMATION: Colon polyps. Usual bowel habits. GROSS DESCRIPTION 1) The specimen is received in formalin labelled Sammy MendozaLurdes Boyer, Rectal Polyp at 3 cm., and consists of a heller soft tissue fragment measuring 0.3 x 0.3 x 0.2 cm. Submitted entirely, one cassette. 2) The specimen is received in formalin labelled Sammy Boyer, Rectal Polyp at 4 cm., and consists of a heller soft tissue fragment measuring 0.3 x 0.3 x 0.2 cm. Submitted entirely, one cassette. 3) The specimen is received in formalin labelled Sammy Boyer, Biopsy Ileocecal Valve Polyp, and consists of a heller soft tissue fragment measuring 0.6 x 0.5 x 0.2 cm. in aggregate. Submitted entirely, one cassette. 4) The specimen is received in formalin labelled Sammy Boyer, Biopsy Sigmoid at 30 cm., and consists of a heller soft tissue fragment measuring 0.7 x 0.3 x 0.2 cm. Submitted entirely, one cassette. 5) The specimen is received in formalin labelled Sammy Boyer, Rectosigmoid Polyp at 15 cm., and consists of a hemorrhagic polypoid soft tissue fragment measuring 0.7 x 0.4 x 0.3 cm. Submitted entirely, one cassette. DIAGNOSIS 1) Colon, rectum, 3 cm., biopsy: Hyperplastic polyp. 2) Colon, 4 cm., biopsy: -- DEPARTMENT OF PATHOLOGY, [address] [place] [address] [facility] Permit #[id number] Amy Dawn M.D. Turf Keeper Dir anayeli -- -- RUN DATE: 12/13/10 [facility] NMI LIVE PAGE 2 RUN TIME: 1593 Specimen Inquiry RUN USER: INTERFACE -- Name: SAMMY BOYER Accdanielito#: [id number] Status: REG REF Re12/12/10 Age/Sex: 55/M Unit#: [id number] Location: [facility] : 57 -- -- CONTINUED -- DIAGNOSIS (Continued) Hyperplastic polyp. 3) Colon, ileocecum, biopsy: A. Tubular adenoma. B. No high grade dysplasia or malignancy. 4) Colon, sigmoid, 30 cm., biopsy: Hyperplastic polyp. 5) Colon, rectosigmoid, biopsy: Hyperplastic polyp. Signed Electronically by: MIR PARKER MD 12/13/10 1442 -- -- DEPARTMENT OF PATHOLOGY, [address] [place] [address] [facility] Permit #[id number] Amy Dawn M.D. Turf Keeper Dir anayeli -- Procedures Date CPT Code Description Status 06/16/2028 Diabetic Retinal Eye Exam Completed 06/16/2018 Diabetic Foot Exam Completed 12/18/2015 Colonoscopy Completed 02/17/2013 86347 Finger Or Heel Stick Completed 05/13/2012 13465 Finger Or Heel Stick Completed 05/06/2011 71630 Finger Or Heel Stick Completed 12/12/2010 Colonoscopy Completed Encounters Type Date Location Provider CPT E/M Dx Office Visit 06/16/2018 8:00a [facility] Thomas Kauffman M.D. 65267 E11.9 E78.2 I10 N40.0 Z12.2 Office Visit 12/17/2017 8:00a [facility] Thomas Kauffman M.D. 35621 E11.9 E78.2 I10 N40.0 D72.829 Office Visit 09/11/2017 3:00p [facility] Jeniffer Chapin, [facility] 62881 S80.862A W57.xxxA Z23 Office Visit 06/16/2017 8:00a [facility] Thomas Kauffman M.D. 75109 E11.9 E78.2 I10 N40.0 Z12.2 M70.42 Z23 Office Visit 12/17/2016 8:30a [facility] Thomas Kauffman M.D. 85837 Z00.00 E11.9 E78.2 I10 D72.829 N40.0 Z23 Z11.59 M19.91 Office Visit 06/05/2016 4:40p [facility] Thomas Kauffman M.D. 15101 E11.9 E78.2 I10 M25.552 Office Visit 11/21/2015 3:30p [facility] Jairo Winchester M.D. 47887 E11.9 E78.2 I10 J20.9 Z23 Office Visit 06/02/2015 8:50a [facility] Jairo Winchester M.D. 97605 V70.0 250.00 272.4 401.9 Office Visit 12/09/2014 8:40a [facility] Jairo Winchester M.D. 78110 250.00 272.4 401.9 Office Visit 08/09/2014 9:10a [facility] Jairo Winchester M.D. 48167 250.00 401.9 272.4 V04.81 Office Visit 04/05/2014 9:30a [facility] Bartolo Comer M.D. 15013 250.00 401.9 272.4 305.1 716.89 Office Visit 12/06/2013 10:00a [facility] Bartolo Comer M.D. 44065 V70.0 V76.44 V76.51 250.00 272.4 401.9 305.1 Office Visit 09/01/2013 10:00a [facility] Bartolo Comer M.D. 48887 250.00 401.9 272.4 305.1 V76.44 Office Visit 02/17/2013 9:00a [facility] Bartolo Comer M.D. 44188 250.00 401.9 272.4 305.1 Office Visit 09/14/2012 8:10a [facility] Bartolo Comer M.D. 07450 V70.0 250.00 272.4 401.9 305.1 V76.44 V76.51 V04.81 Office Visit 05/13/2012 8:00a [facility] Bartolo Comer M.D. 05832 250.00 272.4 401.9 305.1 Office Visit 01/13/2012 9:00a [facility] Bartolo Comer M.D. 63896 250.00 401.9 272.4 590.80 Office Visit 09/09/2011 9:00a [facility] Bartolo Comer M.D. 42815 590.80 599.70 250.00 401.9 272.4 Office Visit 08/30/2011 9:45a [facility] Johann Pacheco-C 56320 599.70 590.80 Office Visit 08/27/2011 10:00a [facility] Bartolo Comer M.D. 66874 599.70 590.80 Office Visit 05/06/2011 9:00a [facility] Bartolo Comer M.D. 80872 250.00 401.9 272.4 Office Visit 01/02/2011 9:20a [facility] Bartolo Comer M.D. 38681 250.00 401.9 272.4 V76.51 Office Visit 12/19/2010 8:10a [facility] Bartolo Comer M.D. 43988 V70.0 780.79 V77.91 V76.44 V76.51 250.00 401.9 272.4 v06.5 Plan of Care Future Appointment(s):12/15/2018 8:00 am - Thomas Kauffman M.D. at [facility] [id number]/07/2018 - Renetta Barrientos, NPR10.13 Epigastric painComments:Will check metabolic panel today. If pain persists despite resolution of constipation for more than a week, please contact the office and we can consider sending you for an ultrasound and/or a GI consult.K59.00 Constipation, unspecifiedComments:Take probiotics or eat yogurt twice daily. Start a fiber supplement, possibly with miralax (polyethylene glycol) 1-2 times per day until you are having large, relieving bowel movements.AllComments:1. Patient has been queried about patient's goals/preferences and functional/lifestyle goals at relevant visits. If relevant, describe: Has been discussed, noted above2. Treatment goals as explainedto the patient: see above3. Are there barriers to meeting treatment goals? Yes If Yes, please describe: Barriers include possible insurance limits, disease process, and difficulty with lifestyle changes4. Self-Management goals as described to the patient: Yes, see above As always, we strongly encourage a healthy diet and making physical activity a part of your every day life. If you have questions about how or where to start, please contact the office.
[2018-10-13 15:07] VITALS: BP 120/82
--- NOTE | 2018-10-13 15:31 | UC ---
Eye Complaint HPI - HPI Summary HPI Summary: 63-year-old male comes to clinic today with a chief complaint of vision change. 45 minutes ago he was sitting in his truck and he noted squiggly lines left side of vision for both eyes. The symptoms lasted for about 30 minutes they gradually dissipated it was more prominent on the left eye than the right eye. As a dissipated it went away in the right eye first and then the left side. Denies any weakness or numbness denies any headaches. No history of migraines. His daughter has migraines that his parents do not. He does have high blood pressure high cholesterol and type 2 diabetes. He has no prior history of strokes or problems with his eyes. Denies any difficulty with speech or any weakness or numbness. Similar episode happened 8 or 9 years ago although is much more brief just a couple of minutes any never had another evaluation for it. He has seen the television analyzer before and he reports all of his eye examinations have been normal. He has no symptoms at this time. - History of Current Complaint Chief Complaint: UCEye Stated Complaint: EYE COMPLAINT Time Seen by Provider: 10/13/18 15:11 Pain Intensity: 0 - Allergies/Home Medications Allergies/Adverse Reactions: Allergies Allergy/AdvReac Type Severity Reaction Status Date / Time No Known Allergies Allergy Verified 10/13/18 14:57 PMH/Surg Hx/FS Hx/Imm Hx Previously Healthy: Yes Endocrine History: Diabetes, Dyslipidemia Cardiovascular History: Hypertension - Surgical History Surgical History: Yes Surgery Procedure, Year, and Place: left rotator cuff repair [facility] - Family History Known Family History: Positive: Other - Patient's mother of stroke. His parents do not have a history of Family History: His daughter has migraines. - Social History Alcohol Use: None Substance Use Type: None Smoking Status (MU): Former Smoker Type: Cigarettes Amount Used/How Often: 1 ppd Length of Time of Smoking/Using Tobacco: 35 years When Did the Patient Quit Smoking/Using Tobacco: June Review of Systems All Other Systems Reviewed And Are Negative: Yes Constitutional: Positive: Negative Skin: Positive: Negative Eyes: Positive: Blurred Vision ENT: Positive: Negative Respiratory: Positive: Negative Cardiovascular: Positive: Negative Gastrointestinal: Positive: Negative Motor: Positive: Negative Neurovascular: Positive: Negative Musculoskeletal: Positive: Negative Neurological: Positive: Negative Psychological: Positive: Negative Is Patient Immunocompromised?: No Physical Exam Triage Information Reviewed: Yes Appearance: Well-Appearing, No Pain Distress, Well-Nourished Vital Signs: Initial Vital Signs Temp 98.7 F 10/13/18 14:59 Pulse 79 10/13/18 14:59 Resp 20 10/13/18 14:59 BP 120/82 10/13/18 14:59 Pulse Ox 97 10/13/18 14:59 Vital Signs Reviewed: Yes Eye Exam: Normal Eyes: Positive: Conjunctiva Clear, Other: - PERRLA/EOMI Neck exam: Normal Neck: Positive: Supple Respiratory: Positive: Lungs clear, Normal breath sounds, No respiratory distress Cardiovascular Exam: Normal Cardiovascular: Positive: RRR Musculoskeletal Exam: Normal Musculoskeletal: Positive: Strength Intact, ROM Intact, No Edema Neurological Exam: Normal Neurological: Positive: Alert, Muscle Tone Normal, Other: - There are no visual field deficits. Face is symmetric. No arm or leg weakness. Speech is normal. No numbness. Normal neurologic examination Psychological Exam: Normal Psychological: Positive: Normal Response To Family, Age Appropriate Behavior Skin Exam: Normal Diagnostics - EKG Cardiac Rate: NL - AT 15:38 Cardiac Rhythm: Sinus: Normal - 70BPM Ectopy: None ST Segment: Normal Eye Complaint Course/Dx - Course Course Of Treatment: I discussed the case with the neurologist on-call Dr. DURAN. 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 Patient did not have any darkness or loss of vision. He had squiggly lines. He had no neurologic deficit of weakness or numbness or difficulty with speech. Plan is to follow-up with ophthalmology. If the patient has the symptoms again is to go to the emergency department for further evaluation. - Differential Dx/Diagnosis Provider Diagnosis: Change in vision Discharge - Sign-Out/Discharge Documenting (check all that apply): Patient Departure All imaging exams completed and their final reports reviewed: No Studies - Discharge Plan Condition: Stable Disposition: HOME Patient Education Materials: Blurred Vision (ED) Referrals: Thomas Kauffman MD [Primary Care Provider] - Charli Adam MD [Medical Doctor] - Additional Instructions: FOLLOW UP WITH YOUR PRIMARY CARE DOCTOR AND OPHTHALMOLOGY. GO TO THE EMERGENCY DEPARTMENT FOR ANY WORSENING OF YOUR CONDITION; VISION CHANGES, WEAKNESS, NUMBNESS, DIFFICULTY WITH SPEECH, PAIN OR QUESTIONS OR CONCERNS. - Billing Disposition and Condition Condition: STABLE Disposition: Home
== END 2018-10-13 16:00 | disposition home or self-care (01) ==
LOC: UCEAST 14:50
DX: H53.9 Unspecified visual disturbance (principal); E11.9 Type 2 diabetes mellitus without complications; I10 Essential (primary) hypertension
CPT/HCPCS: 93005; 99211; G0463

== ENCOUNTER → 2019-04-08 13:55 | Emergency (ER) | payer BC ==
--- OUTSIDE RECORDS SUMMARY | 2019-04-08 14:34 | XMS REPORT | Continuity of Care Document ---
:1955 External Reference #:[id number] Author Name Isaiah Thornton M.D. Address [address] [place] [address] Care Team Providers Name Role Phone Thomas Kauffman M.D. Primary Care Physician Unavailable Payers Date Identification Numbers Payment Provider Subscriber Policy Number: [id number] [facility] Dylon Boyer PayID: [id number] [address] [address] [place] [address] Policy Number: [id number] [facility] Dylon Boyer PayID: [id number] [address] [place] [address] Advance Directives Description No Information Available Problems Active Problems Provider Date Type 2 diabetes mellitus Onset: Essential hypertension Onset: Nuclear senile cataract Isaiah Thornton M.D. 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 Employment ETOH Use Denies alcohol use Recreational Drug Use Denies Drug Use Tobacco Use Start: Unknown End: Patient is a former smoker Smoking Status Reviewed: 03/11/19 Patient is a former smoker Allergies, Adverse Reactions, Alerts Description No Known Drug Allergies Medications Active Medications SIG Qnty Indications Ordering Provider Date Metformin HCL Unknown 1000mg Tablets Atorvastatin Calcium Unknown 20mg Tablets Aspir-81 81mg daily Unknown Tablets Lisinopril Unknown 40mg Tablets Omeprazole Unknown 20mg Capsules DR Immunizations Description No Information Available Vital Signs Description No Information Available Results Description No Information Available Procedures Date Code Description Status 02/18/2019 53332 Est Patient Comprehensive Exam Completed 08/06/2017 58130 New Patient Comprehensive Exam Completed Encounters Description No Information Available Plan of Treatment Future Appointment(s):04/22/2019 8:00 am - Isaiah Thornton M.D. at Charli Adam MD, 03/11/2019 - Isaiah Thornton M.D.H53.2 DiplopiaComments:Smoking can increase the risk of developing or worsening any eye related disease, as well as affect your overall health. If you are a smoker, we strongly recommend that you quit.If you are not a smoker, we strongly recommend that you do not start. RECHECK IN 2 MONTHS, TO RECHECK MEASUREMENTS.Follow up:6-8 Week Follow Up DIPLOPIA CHECK/REFRACTION At your next visit, we are not planning to dilate youreyes. However, if you have any changes in your vision or new symptoms, there are certain situations that require us to dilate your eyes. If Dr. Thornton requests any additional testing, that may require extra time. If you have any questions before your next appointment, please call our office at .E11.9 Type 2 diabetes mellitus without complicationsComments:You have diabetes. Proper control of your diabetes is important for the health of your eyes. Changes in your eyes from diabetes can happen without symptoms, so it is important that you have your eyes examined.
--- NOTE | 2019-04-08 15:38 | ED ---
Throat Pain/Nasal Congestion - HPI Summary HPI Summary: The patient is a 63 y/o M presenting to [facility] with a chief complaint of diplopia for a few months. He has seen one of Dr. Adam's associates a few times , where he was told that his left eye is slightly higher than his right; at a following appointment, he was told that his condition seemed to be improving, however, the patient does not feel like there is improvement. The diplopia is often aggravated by looking at something for too long, and alleviated by trying to focus through blinking. He additionally c/o frontal head pressure located most often behind the left eye with sharp pain lasting for a few seconds and lightheadedness. He denies weakness or numbness in the extremities and neck pain. Hx of DM, HTN. Former smoker, no EtOH, no substance use. - History of Current Complaint Chief Complaint: EDNeurologicalDeficit Time Seen by Provider: 04/08/19 14:47 Hx Obtained From: Patient Onset/Duration: Gradual Onset, Lasting Weeks, Still Present Severity: Moderate - Allergies/Home Medications Allergies/Adverse Reactions: Allergies Allergy/AdvReac Type Severity Reaction Status Date / Time No Known Allergies Allergy Verified 04/08/19 14:03 Home Medications: Home Medications Aspirin EC TAB* [Ecotrin EC Low Dose 81 MG*] 81 mg PO DAILY 04/08/19 [History Confirmed 04/08/19] Lisinopril TAB* [Prinivil TAB*] 40 mg PO DAILY 04/08/19 [History Confirmed 04/08] Metformin ER (NF) 1,000 mg PO DAILY 04/08/19 [History Confirmed 04/08/19] Omeprazole (Nf) [Prilosec (NF)] 40 mg PO DAILY 04/08/19 [History Confirmed 04/08] PMH/Surg Hx/FS Hx/Imm Hx Endocrine/Hematology History: Reports: Hx Diabetes - borderline Denies: Hx Thyroid Disease Cardiovascular History: Reports: Hx Hypertension Denies: Hx Hypercholesterolemia, Hx Pacemaker/ICD Respiratory History: Denies: Hx Asthma, Hx Chronic Obstructive Pulmonary Disease (COPD) GI History: Denies: Hx Ulcer History: Denies: Hx Renal Disease Sensory History: Denies: Hx Hearing Aid Opthamlomology History: Reports: Hx Contacts or Glasses Denies: Hx Legally Blind Psychiatric History: Denies: Hx Panic Disorder - Surgical History Surgery Procedure, Year, and Place: left rotator cuff repair 1999 [facility] Infectious Disease History: No Infectious Disease History: 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 Negative: Cardiac Disease, Hypertension, Diabetes Family History: His daughter has migraines. - Social History Alcohol Use: None Alcohol Amount: former Hx Substance Use: No Substance Use Type: Reports: None Hx Tobacco Use: Yes Smoking Status (MU): Former Smoker Type: Cigarettes Do You Chew or Dip Tobacco: No Amount Used/How Often: 1 ppd Have You Chewed or Dipped Tobacco in the LAST YEAR: No Length of Time of Smoking/Using Tobacco: 35 years Have You Smoked in the Last Year: No Review of Systems Positive: Diplopia Positive: Other - NEGATIVE: neck pain Neurological: Other - lightheaded Positive: Headache - pressure, frontal and behind eyes, worse on left. Negative : Weakness - in extremities, Numbness - in extremities All Other Systems Reviewed And Are Negative: Yes Physical Exam - Summary Physical Exam Summary: VITAL SIGNS: Reviewed. GENERAL: Patient is a well-developed and nourished female who is lying comfortable in the stretcher. Patient is not in any acute respiratory distress. HEAD AND FACE: No signs of trauma. No ecchymosis, hematomas or skull depressions. No sinus tenderness. EYES: PERRLA, EOMI x 2, No injected conjunctiva, no nystagmus. EARS: Hearing grossly intact. Ear canals and tympanic membranes are within normal limits. MOUTH: Oropharynx within normal limits. NECK: Supple, trachea is midline, no adenopathy, no JVD, no carotid bruit, no c- spine tenderness, neck with full ROM. CHEST: Symmetric, no tenderness at palpation LUNGS: Clear to auscultation bilaterally. No wheezing or crackles. CVS: Regular rate and rhythm, S1 and S2 present, no murmurs or gallops appreciated. ABDOMEN: Soft, non-tender. No signs of distention. No rebound no guarding, and no masses palpated. Bowel sounds are normal. EXTREMITIES: FROM in all major joints, no edema, no cyanosis or clubbing. NEURO: Alert and oriented x 3. No acute neurological deficits. Speech is normal and follows commands. SKIN: Dry and warm. GCS: 15 Triage Information Reviewed: Yes Vital Signs On Initial Exam: Initial Vitals Temp Pulse Resp BP Pulse Ox 98.7 F 73 18 117/88 96 04/08/19 13:58 04/08/19 13:58 04/08/19 13:58 04/08/19 13:58 04/08/19 13:58 Vital Signs Reviewed: Yes - Daisy Coma Scale Best Eye Response: 4 - Spontaneous Best Motor Response: 6 - Obeys Commands Best Verbal Response: 5 - Oriented Coma Scale Total: 15 Diagnostics - Vital Signs Vital Signs Temp Pulse Resp BP Pulse Ox 04/08/19 15:15 63 20 102/77 97 04/08/19 15:00 62 17 96 04/08/19 14:47 94 04/08/19 14:36 68 14 111/77 98 04/08/19 14:35 65 17 98 04/08/19 13:58 98.7 F 73 18 117/88 96 - Laboratory Result Diagrams: 04/08/19 15:30 04/08/19 15:30 Lab Statement: Any lab studies that have been ordered have been reviewed, and results considered in the medical decision making process. - Radiology CXR Radiology Interpretation Completed By: Radiologist Summary of Radiographic Findings: Stigmata of obstructive lung disease. No acute pulmonary or cardiac process evident. ED physician has reviewed this report. - CT Brain CT CT Interpretation Completed By: Radiologist Summary of CT Findings: No evidence for acute intracranial abnormality. ED physician has reviewed this report. - EKG 1454 Cardiac Rate: NL - 61 BPM EKG Rhythm: Sinus Rhythm Summary of EKG Findings: Nml axis, no ST elevations Re-Evaluation - Re-Evaluation First Eval Re-Evaluation Time: 16:42 Change: Unchanged Comment: I discussed the results and discharge home. EENT Course/Dx - Course Assessment/Plan: The patient is a 63 y/o M presenting to [facility] with a chief complaint of diplopia for a few months. He has seen one of Dr. Adam's associates a few times, where he was told that his left eye is slightly higher than his right; at a following appointment, he was told that his condition seemed to be improving, however, the patient does not feel like there is improvement. The diplopia is often aggravated by looking at something for too long, and alleviated by trying to focus through blinking. He additionally c/o frontal head pressure located most often behind the left eye with sharp pain lasting for a few seconds and lightheadedness. He denies weakness or numbness in the extremities and neck pain. Hx of DM, HTN. Former smoker, no EtOH, no substance use. Blood test results without any significant abnormality except for hemoglobin of 13.5, hematocrit of 40, carbon dioxide of 21, and troponin of 0.00. Alcohol level less than 10. Chest x-ray impression: Stigmata of obstructive lung disease. No acute pulmonary or cardiac process evident. Head CT impression: No evidence for acute interconnected abnormality. The patient doesnt have any acute abnormalities. Blood work is normal and head CT is normal. Therefore the patient will be discharged home with follow-up with his hunting guide. At this point I discussed all the findings and test results with the patient. He was instructed to return to the emergency room immediately if any of the symptoms return or worsen. They understand and agree. Neurological exam before discharge: Patient is alert and oriented x 3. No acute neurological deficits. Patient vital signs are stable. Patient is to follow up with PCP in the next 2 3 days. They understand and agree. Plan of care was discussed with the patient and patient understands and agrees with the plan of care. All questions were answered at patient satisfaction. There were no further complaints or concerns. - Diagnoses Provider Diagnoses: Vertical diplopia Discharge - Sign-Out/Discharge Documenting (check all that apply): Patient Departure - Patient will be discharged home. Patient Received Moderate/Deep Sedation with Procedure: No - Discharge Plan Condition: Good Disposition: HOME Patient Education Materials: Diplopia (ED) Referrals: Thomas Kauffman MD [Primary Care Provider] - 3 Days Additional Instructions: FOLLOW UP WITH YOUR PRIMARY CARE PROVIDER AND TELEVISION CABLE INSTALLER SCHEDULED. RETURN TO THE EMERGENCY DEPARTMENT FOR ANY NEW OR WORSENING SYMPTOMS. - Billing Disposition and Condition Condition: GOOD Disposition: Home - Attestation Statements Document Initiated by Scribe: Yes Documenting Scribe: Caitlin Polo Provider For Whom Sadiaibe is Documenting (Include Credential): Dr. Chino Carvajal MD Scribe Attestation: Caitlin Bernabe scribed for Dr. Chino Carvajal MD on 04/08/19 at 2202. Scribe Documentation Reviewed: Yes Provider Attestation: The documentation as recorded by the scribe, Caitlin Polo accurately reflects the service I personally performed and the decisions made by me, Dr. Chino Carvajal MD Status of Scribe Document: Viewed
[2019-04-08 15:47] LABS: ABS Basophils 0.1 10^3/ul (0-0.2); ABS Eosinophils 0.1 10^3/ul (0-0.6); ABS Lymphocytes 2.8 10^3/ul (1.0-4.8); ABS Monocytes 0.6 10^3/ul (0-0.8); ABS Neutrophils 4.1 10^3/ul (1.5-7.7); Eosinophil % 1.2 %; Hematocrit 40 % (42-52); Hemoglobin 13.5 g/dL (14.0-18.0); Lymphocyte % 36.9 %; Mean Corpuscular HGB Conc 34 g/dL (31-36); Mean Corpuscular Hemoglobin 30 pg (27-31); Mean Corpuscular Volume 90 fL (80-94); Mean Platelet Volume 8.6 fL (7.4-10.4); Nucleated Red Blood Cells % 0.1; Platelet Count 263 10^3/uL (150-450); Red Blood Count 4.47 10^6 /uL (4.18-5.48); Red Cell Distribution Width 14 % (10.5-15); White Blood Count 7.7 10^3/uL (3.5-10.8)
[2019-04-08 15:51] LABS: INR 1.1 (0.82-1.09)
[2019-04-08 16:07] LABS: ALT 22 U/L (7-52); AST 21 U/L (13-39); Albumin 4.4 g/dL (3.2-5.2); Albumin/Globulin Ratio 1.8 (1-3); Alkaline Phosphatase 80 U/L (34-104); Anion Gap 7 mmol/L (2-11); BUN/Creatinine Ratio 18.6 (8-20); Blood Urea Nitrogen 21 mg/dL (6-24); CO2 Carbon Dioxide 21 mmol/L (22-32); Calcium 9.9 mg/dL (8.6-10.3); Chloride 108 mmol/L (101-111); Cholesterol 119 mg/dL; EGFR African American 79.6 (>60); EGFR Non-African American 65.8 (>60); Globulin 2.5 g/dL (2-4); Glucose 96 mg/dL (70-100); Potassium 4.2 mmol/L (3.5-5.0); Sodium 136 mmol/L (135-145); Total Protein 6.9 g/dL (6.4-8.9); Triglycerides 81 mg/dL
[2019-04-08 16:14] LABS: Alcohol < 10 mg/dL (<10)
[2019-04-08 16:47] LABS: Urine Appearance Cloudy; Urine Bilirubin Negative (Negative); Urine Blood Negative (Negative); Urine Color Yellow; Urine Glucose Negative (Negative); Urine Ketones Negative (Negative); Urine Nitrite Negative (Negative); Urine Protein Negative (Negative); Urine Specific Gravity 1.012 (1.010-1.030); Urine Urobilinogen Negative (Negative)
[2019-04-08 16:50] VITALS: BP 108/82
[2019-04-08 17:05] LABS: Urine Benzodiazepine Screen None Detected (None Detect); Urine Opiates Screen None Detected (None Detect)
[2019-04-08 18:08] LABS: LDL Cholesterol 65 mg/dL
== END | disposition home or self-care (01) ==
LOC: ED 13:55
DX: H53.2 Diplopia (principal); I10 Essential (primary) hypertension; E11.9 Type 2 diabetes mellitus without complications; J44.9 Chronic obstructive pulmonary disease, unspecified; Z79.82 Long term (current) use of aspirin; Z79.899 Other long term (current) drug therapy; Z79.84 Long term (current) use of oral hypoglycemic drugs; Z87.891 Personal history of nicotine dependence
CPT/HCPCS: 36415; 70450; 71046; 80053; 80061; 80307; 80320; 81003; 83605; 84484; 85025; 85610; 93005; 99283; G0480